=== PATIENT | male | born 1980 | race Caucasian/White ===

== ENCOUNTER 2016-08-16 16:31 | Emergency (ER) | payer OTHER ==
[~2016-08-16] VITALS: Ht 167.6 cm; Wt 65.1 kg
[~2016-08-16 16:31] MED LIST: CLEOCIN300 MG PO; KEFLEX500 MG PO; MOTRIN800 MG PO; MUCINEX D ER T1 EACH PO; NAPROSYN500 MG PO; NOHOMEMEDS; TYLENOL EXTRA500 MG PO; ULTRAM50 MG PO
[2016-08-16] MEDS ORDERED: BACTRIM,SEPT1 TABLET PO (18:25)
[2016-08-16 18:43] VITALS: BP 142/91
== END 2016-08-16 18:44 | disposition home or self-care (01) ==
LOC: EME 16:31
PROC: 0H9CXZZ Drainage of Left Upper Arm Skin, External Approach (ICD-10-PCS; principal; 2016-08-16)
DX: L02.412 Cutaneous abscess of left axilla (principal); L02.411 Cutaneous abscess of right axilla; F17.210 Nicotine dependence, cigarettes, uncomplicated
CPT/HCPCS: 99281; 99283

== ENCOUNTER 2016-10-03 20:02 | Emergency (ER) | payer OTHER ==
[~2016-10-03] VITALS: Ht 167.6 cm; Wt 62.9 kg
[~2016-10-03 20:02] MED LIST changes: +BACTRIM,SEPT1 TABLET PO
[2016-10-03 21:22] LABS: CHLORIDE 104 mEq/L (99-109); HEMATOCRIT 41.6 % (38.0-50.0); MCH 29.9 PG (29.0-34.0); MCHC 34.1 G/DL (30.0-36.0); MCV 87.6 FL (86-99); POTASSIUM 4.6 mEq/L (3.7-5.4); RBC DIS.WIDTH-CV 12.7 % (11.8-14.6); RBC DIS.WIDTH-SD 41.1 % (39-53); RED BLOOD COUNT 4.75 M/uL (4.00-5.50); SODIUM 138 mEq/L (136-147)
[2016-10-03 21:23] LABS: GLUCOSE 128 mg/dL (70-99)
[2016-10-03 21:25] LABS: ADD MIUA? YES; BILIRUBIN NEGATIVE; BLOOD MODERATE; COLOR AMBER ((YELLOW)); GLUCOSE (STRIP) NEGATIVE; KETONES 20; LEUKOCYTES LARGE; NITRITE POSITIVE; PROTEIN (STRIP) 100; SPECIFIC GRAVITY 1.018 (1.000-1.030); UROBILINOGEN 0.2 MG/DL (0.2-1.0)
[2016-10-03 21:25] LABS: ANION GAP 9 MEQ/L (2-14)
[2016-10-03 21:27] LABS: GFR ESTIMATE (CALCULATED) > 59 mL/min/
[2016-10-03 21:28] LABS: UREA NITROGEN (BUN) 10 mg/dL (9-23)
[2016-10-03 22:20] LABS: PLATELET COUNT 196 K/uL (156-360)
[2016-10-03 22:46] LABS: BACTERIA 3+ /HPF; CASTS NONE SEEN /LPF; CRYSTALS NONE SEEN; EPITHELIAL CELLS 1+ /HPF; MUCUS NONE SEEN /LPF; UCUL ADDED? YES; WHITE BLOOD CELLS TNTC /HPF (0-5)
[2016-10-04] MEDS ORDERED: AUGMENTIN875 MG PO (00:33)
[2016-10-04] MEDS ORDERED: NORCO 5/3251 TABLET PO (00:33)
[2016-10-04 00:39] VITALS: BP 131/76
== END 2016-10-04 00:41 | disposition home or self-care (01) ==
LOC: EME 20:02
DX: N10 Acute pyelonephritis (principal); J44.9 Chronic obstructive pulmonary disease, unspecified; F17.200 Nicotine dependence, unspecified, uncomplicated
CPT/HCPCS: 74176; 80048; 81003; 83605; 85027; 87077; 87086; 87186; 99281; 99285; J0696; J7030; J7050

== ENCOUNTER 2017-01-09 04:44 | Emergency (ER) | payer OTHER ==
[~2017-01-09] VITALS: Ht 167.6 cm; Wt 61.2 kg
[~2017-01-09 04:44] MED LIST changes: +AUGMENTIN875 MG PO; +NORCO 5/3251 TABLET PO
[2017-01-09] MEDS ORDERED: BACTRIM,SEPT1 TABLET PO (05:41)
[2017-01-09 06:02] VITALS: BP 141/87
== END 2017-01-09 06:03 | disposition home or self-care (01) ==
LOC: EME 04:44
DX: L02.414 Cutaneous abscess of left upper limb (principal); F17.200 Nicotine dependence, unspecified, uncomplicated
CPT/HCPCS: 99281; 99283

== ENCOUNTER 2017-08-31 12:20 | Emergency (ER) | payer OTHER ==
[~2017-08-31] VITALS: Ht 170.2 cm; Wt 62.1 kg
[2017-08-31] MEDS ORDERED: AUGMENTIN875 MG PO (14:05)
[2017-08-31] MEDS ORDERED: BLEPH-105 ML LEFT EYE (14:05)
[2017-08-31 14:14] VITALS: BP 138/79
== END 2017-08-31 14:15 | disposition home or self-care (01) ==
LOC: EME 12:20
DX: H10.9 Unspecified conjunctivitis (principal); H01.006 Unspecified blepharitis left eye, unspecified eyelid; J44.9 Chronic obstructive pulmonary disease, unspecified; F17.200 Nicotine dependence, unspecified, uncomplicated
CPT/HCPCS: 99281; 99284

== ENCOUNTER 2017-10-19 10:25 | Emergency (ER) | payer OTHER ==
[~2017-10-19] VITALS: Ht 170.2 cm; Wt 59.4 kg
[~2017-10-19 10:25] MED LIST changes: +BLEPH-105 ML LEFT EYE
[2017-10-19] MEDS ORDERED: CLEOCIN150 MG PO (11:28)
[2017-10-19 11:48] VITALS: BP 121/84
== END 2017-10-19 11:48 | disposition home or self-care (01) ==
LOC: EME 10:25
DX: L02.411 Cutaneous abscess of right axilla (principal); F17.200 Nicotine dependence, unspecified, uncomplicated
CPT/HCPCS: 99281; 99284